=== PATIENT | female | born 1960 | race Caucasian/White ===

== ENCOUNTER → 2018-06-06 | Outpatient (CLI) | payer SELFPAY ==
--- NOTE | 2018-06-06 09:40 | KCIC ---
MRI Cervical Spine Without Contrast History: Neck pain, right shoulder pain Technique: Multiplanar, multi sequential noncontrast MR imaging was performed of the cervical spine. Comparison: December 27, 2007 Findings: There has been interval anterior cervical fusion at C5-6. Exam does not accurately evaluate integrity of hardware. There is interbody fusion at C5-6. Cervical cord caliber is within normal limits without significant focal signal abnormality. There is no significant abnormality of the cervical medullary junction. Cervical vertebral body stature and AP alignment are within normal limits. There is mild reversal of the lordotic curvature. There are posterior annular tears at C3-4 and C4-5. There is no significant marrow edema. C2-C3: Neural foramina and spinal canal are adequate. C3-C4: There is negligible posterior protrusion as seen previously. Spinal canal and neural foramina are adequate. C4-C5: Spinal canal and neural foramina are adequate. There is moderate left facet degenerative change. C5-C6: There are posterior osteophytes/osteophytic bridging. Spinal canal and neural foramina are adequate. C6-C7: There is new broad protrusion greatest centrally and in the right lateral recess about 1 cm transverse by 0.4 cm AP by 0.4 cm cc. There is indentation upon the ventral thecal sac in the right lateral recess. Central canal is narrowed to 7-8 mm also with mild to moderate narrowing of the right lateral recess. Left neural foramen is adequate. There is probable mild right uncovertebral degenerative change. There is overall mild narrowing of the right neural foramen greater proximally. C7-T1: Neural foramina and spinal canal are adequate. Impression: 1. There is central canal stenosis about 7 to 8 mm at C6-7 also with mild to moderate right lateral recess stenosis by broad protrusion. There is mild narrowing of the right C6-7 neural foramen greater proximally. 2. There is anterior cervical fusion at C5-6, osseous interbody fusion at this level. Electronically signed by: Benito Henriquez MD (06/06/2018 9:36 AM) [id number]
== END | disposition home or self-care (01) ==
LOC: KCIC MRI 07:48
PROVIDERS: ATTEND Nurse Practitioner Family
DX: M48.02 Spinal stenosis, cervical region (principal); M50.223 Other cervical disc displacement at C6-C7 level; M25.78 Osteophyte, vertebrae
CPT/HCPCS: 72141

== ENCOUNTER → 2018-06-30 | Outpatient (CLI) | payer SELFPAY ==
[~2018-06-30] MED LIST: ACET500T68 PO; ASPI-630 PO; ATOR40TA59 PO; GABA600T2 PO; IBUP100O25 PO; IOHEXOL 180 MG/ML 10 ML VIAL. ONE; LISI-338 PO; OMEP40CA5 PO; ZOLP12.54 PO; methylPREDNISolone ACETATE 40 MG/ML VIAL. ONE; methylPREDNISolone ACETATE 80 MG/ML VIAL. ONE
--- NOTE | 2018-06-30 19:50 | PAIN ---
DATE OF SERVICE: 06/30/2018 INITIAL CONSULTATION FOR PAIN CLINIC CHIEF COMPLAINT: Neck and right upper extremity pain. HISTORY OF PRESENT ILLNESS: This is a 58-year-old female who presents with history of pain in the base of the neck and right upper extremity for about 3-4 months, but was not a result of any injury or action that she is aware of, just came up gradually, becoming much more severe with time. The patient reports the pain is constant, sharp, stabbing, throbbing, shooting, tingling with numbness and radiating pain in the right upper extremity into the posterior shoulder, anterior shoulder as well as into the clavicle, into the entire right arm, mostly in the anterior aspect of the biceps, but also in the triceps region as well as in the forearm, hand with some numbness and tingling in the thumb, first and second fingers. On the right side, the patient reports she has been dropping items with the right hand and fatigues very easily, much worse with reaching above her head, reaching forward, any weightbearing with her arms, even reaching out to drive a car or to move an item and at work with typing. The patient reports it awakens her from sleep at least 2-3 times at night, does not affect her bowel or bladder control or ability to walk, but significant in intensity throughout her working day. The patient reports she tried Tylenol, ibuprofen as well as tramadol and none of these have worked very successfully. The patient did have an MRI scan of the cervical spine showing central stenosis 7-8 mm at C6-C7 with mild to moderate right lateral recess stenosis by broad protrusion with mild narrowing of the right C6-C7 neural foramen, greater proximally with the previous anterior fusion at C5-C6 with interbody fusion anteriorly. The patient describes her disability rating from 0-10, 10 being the worst, is an 8 with family and home responsibilities, 9 with recreation, social activity, occupation, sexual behavior and self-care, 9-10 with life support activities. PAST MEDICAL HISTORY: Significant for hypertension, arthritis, gastroesophageal reflux, history of cerebrovascular accident about one year ago, arthritis, fibromyalgia. PREVIOUS SURGERIES: Include appendectomy, hernia repair, hysterectomy, and anterior fusion in 2007. CURRENT MEDICATIONS: Include ibuprofen, acetaminophen, gabapentin, aspirin, lisinopril, atorvastatin, omeprazole, zolpidem. ALLERGIES: THE PATIENT IS ALLERGIC TO CODEINE AND MORPHINE. FAMILY HISTORY: Significant for stroke, diabetes and cancers. SOCIAL HISTORY: The patient does not drink alcohol, does not smoke, does not use any illegal, illicit or recreational drugs. She is , lives with her spouse, has one child living at home, and lives locally in [place], [place]. REVIEW OF SYSTEMS: The patient's review of systems is positive for those items mentioned in history of present illness. All systems reviewed and otherwise negative. It is complete, full and well documented on the patient's chart. PHYSICAL EXAMINATION: VITAL SIGNS: The patient's blood pressure is 155/99, pulse is 75, respirations 16, temperature is 98.2 degrees Fahrenheit, height is 5 feet 6 inches, weight is 271 pounds. GENERAL: The patient is awake, alert, oriented, appropriate, very pleasant demeanor. HEENT: Head shows normocephalic, atraumatic. Extraocular movements are intact and symmetrical. Oral cavity: Mucous membranes are moist and pink. NECK: Shows anterior throat supple without palpable lymphadenopathy noted. Swallow reflex is symmetrical. CHEST: Shows normal on inspection. Breath sounds are clear to auscultation bilaterally. HEART: Shows S1, S2 clear. No murmurs auscultated. ABDOMEN: Obese, soft, nontender, nondistended. No palpable organomegaly is noted. No rebound or guarding demonstrated. MUSCULOSKELETAL: Back shows spine grossly in the midline. Normal appearing thoracic kyphosis and some minor flattening of lumbar lordotic curvature. Cervical lordotic curvature is slightly straightened as well. The patient has difficulty with rotational motion, particularly to the right greater than 45 degrees with the neck and the extension is significantly tender as well on the right side and the patient's shoulder. Left side has better rotation, but still guarded past 45 degrees. Forward flexion is performed without significant difficulty chin to chest. The patient's upper extremities show deep tendon reflexes at 2+ in the biceps and triceps tendons. Motor exam is approximately 4 on a scale of 5 with right senior sas programmer and 5/5 on the left. Bicep and tricep flexion likewise is 4/5 right, 5/5 left. Peripheral pulses are 2+ radial distribution. No peripheral edema is noted. Shoulder shrug is strong and intact, but with some significant tenderness and slight loss of strength with resistance on the right side only with significant pain reported in the triceps region. This is true with abduction of shoulder to 90 degrees. Some slight loss of strength secondary to pain on the right side with resistance. IMPRESSION: 1. This is a 58-year-old female with approximately 3-4 month history of increasing pain in the base of the neck, right shoulder, right upper extremity in a radicular fashion. 2. MRI scan of cervical spine as noted. 3. Arthritis. 4. Hypertension. 5. Previous cerebrovascular accident. PLAN: Options were discussed with the patient including conservative medical management, physical therapies, interventional techniques. She would like to pursue with interventional techniques. We discussed a cervical epidural steroid injection using descriptions as well as anatomical models to describe the procedure. Risks were then discussed including, but not limited to bleeding, infection, possibility of epidural hematoma and subsequent neurological compromise, dural puncture, headaches, spinal cord and/or nerve damage, side effects of steroid medication and poor results regarding pain control. The patient understands and wished to proceed. The patient will return to the clinic in approximately 2 weeks for followup, was counseled on return appointment, activity level and side effects to be aware of. DIAGNOSIS: Cervical radiculopathy with cervical spinal stenosis and post-cervical laminectomy syndrome. PROCEDURE: Cervical epidural steroid injection, translaminar approach at C6-C7 level using C-arm fluoroscopic guidance under sterile prep and drape using local anesthetic. MEDICATION INJECTED: A total of 120 mg Depo-Medrol plus 5 mL of preservative-free normal saline and 2 mL of Isovue for contrast. CONDITION AT DISCHARGE: Stable. The patient tolerated the procedure well, had no complications. JASPER BEE MD DR: MAKENNA/aline JOB#: [id number] / [id number] SUE Carcamo APRN
== END | disposition home or self-care (01) ==
LOC: PNCL 11:08
PROVIDERS: ATTEND Anesthesiology
DX: M48.02 Spinal stenosis, cervical region (principal); M54.12 Radiculopathy, cervical region; M96.1 Postlaminectomy syndrome, not elsewhere classified; I10 Essential (primary) hypertension; K21.9 Gastro-esophageal reflux disease without esophagitis; M19.90 Unspecified osteoarthritis, unspecified site; Z86.73 Personal history of transient ischemic attack (TIA), and cerebral infarction without residual deficits; M79.7 Fibromyalgia; Z90.710 Acquired absence of both cervix and uterus; Z90.49 Acquired absence of other specified parts of digestive tract; Z98.1 Arthrodesis status; Z98.890 Other specified postprocedural states; Z82.3 Family history of stroke; Z83.3 Family history of diabetes mellitus
CPT/HCPCS: 62321; J1030; J1040; Q9965

== ENCOUNTER → 2018-07-25 | Outpatient (CLI) | payer SELFPAY ==
[~2018-07-25] MED LIST changes: -IOHEXOL 180 MG/ML 10 ML VIAL. ONE; -methylPREDNISolone ACETATE 40 MG/ML VIAL. ONE; -methylPREDNISolone ACETATE 80 MG/ML VIAL. ONE
--- NOTE | 2018-07-25 11:07 | PAIN ---
DATE OF SERVICE: 07/25/2018 DIAGNOSES: Cervical radiculopathy with cervical spinal stenosis and post-cervical laminectomy syndrome. HISTORY OF PRESENT ILLNESS: The patient is a 58-year-old female who returns for followup status post cervical epidural steroid injection x 1. The patient reports about 80% improvement in the base of neck and right upper extremity. The patient reports it as a 7 on a scale of 10 at its worst, 4 on average, 1 at its least and is a 1 today. The patient reports sometimes aching, sharp, tight, can be tingling, burning, cramping in the right arm and hand. The numbness in the fingers is almost completely gone. The patient reports it is radiating, on and off in intensity, worse with using the computer and using a mouse with a computer at work. The patient reports it still wakes her from sleep occasionally, but is only about every 3-4 hours, she usually reposition and get back to sleep. The patient reports no new motor or sensory deficits, no new changes or other complaints. PHYSICAL EXAMINATION: VITAL SIGNS: Today, the patient's blood pressure 149/77, pulse 77, respirations are 18, temperature 98.6 degrees Fahrenheit. Height is 5 feet 6 inches, weight is 273 pounds. GENERAL: The patient is awake, alert, oriented, appropriate, very pleasant demeanor. HEENT: Head is normocephalic, atraumatic. Extraocular movements intact and symmetrical. Oral cavity: Mucous membranes moist and pink. Dentition is intact. NECK: Shows anterior throat supple without palpable lymphadenopathy noted. Swallow reflex is symmetrical. CHEST: Shows normal on inspection. Breath sounds clear to auscultation bilaterally. HEART: Shows S1, S2 clear. No murmurs auscultated. ABDOMEN: Soft, nontender, nondistended. No palpable organomegaly is noted. No rebound or guarding demonstrated. BACK: Shows spine grossly in the midline, normal-appearing cervical lordotic curvature, thoracic kyphotic curvature. Cervical paraspinous muscle shows symmetrical on inspection, with palpation shows some moderate tenderness diffusely, but only diffusely in the low cervical distribution, slightly more on the right than the left. Some minor tenderness in the right lateral and inferior aspect of the trapezius musculature, but good rotational motion is maintained of the cervical spine with increased ability for extension with comfort. Good forward flexion, right and left lateral rotation past 45 degrees without significant difficulty. EXTREMITIES: Upper extremities show deep tendon reflexes 2+ in the biceps, triceps tendons. Motor exam is approximately 4 on a scale 5 on the right and 5/5 on the left as previously. Peripheral pulses are 1+ posterior tibia. No peripheral edema is noted bilaterally. Options were discussed with the patient. The patient's old chart was reviewed, as her current medication regimen updated. Current review of systems updated today as well. We will hold on any further injection at this time as the patient is doing quite well. We will try a Medrol Dosepak in the meantime as she is trying to avoid any further injections due to cost from insurance coverage. The patient was given instruction as well as side effects to be aware of with the medication and will follow up in approximately 2 weeks or as necessary. JASPER BEE MD DR: MAKENNA/aline JOB#: [id number] / [id number]
== END | disposition home or self-care (01) ==
LOC: PNCL 08:35
PROVIDERS: ATTEND Anesthesiology
DX: M54.12 Radiculopathy, cervical region (principal); M48.02 Spinal stenosis, cervical region; M96.1 Postlaminectomy syndrome, not elsewhere classified; Z79.52 Long term (current) use of systemic steroids
CPT/HCPCS: G0463